=== PATIENT | female | born 1970 | race African-American/Black ===

== ENCOUNTER 2017-10-20 04:01 | Emergency (ER) | payer SELFPAY ==
[~2017-10-20] VITALS: Ht 167.6 cm; Wt 64.0 kg
[2017-10-20] MEDS ORDERED: KETOROLAC 60MG/2ML VIAL IM ONE (07:30)
[2017-10-20 08:55] VITALS: BP 102/62
== END 2017-10-20 09:25 | disposition home or self-care (01) ==
LOC: ER 04:01
DX: M72.2 Plantar fascial fibromatosis (principal); Z88.0 Allergy status to penicillin
CPT/HCPCS: 82962; 96372; 99283; J1885; Z7610